=== PATIENT | female | born 2000 | race Caucasian/White ===

== ENCOUNTER 2018-09-07 01:17 | Emergency (ER) | payer MEDICAID ==
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
== END 2018-09-07 02:34 | disposition home or self-care (01) ==
LOC: ER 01:17
DX: S00.93XA Contusion of unspecified part of head, initial encounter (principal); S00.81XA Abrasion of other part of head, initial encounter; R11.11 Vomiting without nausea; R51 Headache; V89.2XXA Person injured in unspecified motor-vehicle accident, traffic, initial encounter
CPT/HCPCS: 70450; 72125; 99283; 99284